=== PATIENT | female | born 1975 | race Caucasian/White ===

== ENCOUNTER → 2024-01-01 | Outpatient (CLI) | payer BC ==
[2024-01-01 08:36] VITALS: BP 104/75; PULSE 94; RESP 16; TEMP 98.2
--- NOTE | 2024-01-01 09:16 | P.HPOB ---
History of Present Illness H&P Date: 01/01/24 Chief Complaint: The patient is here for her routine gynecologic exam. This is a 48-year-old G1, P1 with an LMP of 12/12/23. Patient is here to establish with this office. It has been about 1 year since her last pelvic exam. She previously saw Dr. Campos for her gynecologic care. Per Dr. Campos's records, she had a negative Pap smear on 12/14/2022. She also had negative Pap smears in 2021, 2020, and 2017. The patient states that she recently had a normal mammogram about 3 weeks ago at [facility]. She is without gynecologic complaints. Her menstrual periods are regular every month. Review of Systems According to Dr. Campos's records, she has gained about 9 pounds over the past year. She denies respiratory, cardiac, or G.I. problems. Past Medical History Past Medical History: Thyroid Disorder Additional Past Medical History / Comment(s): Hypothyroid. 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 She has no other history of STDs. History of Any Multi-Drug Resistant Organisms: None Reported Past Surgical History: Adenoidectomy, Orthopedic Surgery, Tubal Ligation Additional Past Surgical History / Comment(s): RHINOPLASTY, LIPOSUCTION, ABDOMINPOPLASTY, ARTHROSCOPIC BOTH KNEES. Nasal reconstruction. The LEEP procedure of the cervix in 2003. Colonoscopy in the past. Past Anesthesia/Blood Transfusion Reactions: No Reported Reaction Smoking Status: Former smoker Past Alcohol Use History: Occasional (3-4 drinks per week.) Additional Past Alcohol Use History / Comment(s): Quit smoking in 2006. Past Drug Use History: None Reported Additional History: She has been since 1999. She works for the [employer]. 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 - Past Family History Mother Additional Family Medical History / Comment(s): Psoriasis. Father Family Medical History: Hypertension Additional Family Medical History / Comment(s): Paternal grandmother had breast cancer and a paternal grandfather had colon cancer. Medications and Allergies Home Medications Medication Instructions Recorded Confirmed Type Levothyroxine Sodium 25 mcg PO DAILY 01/01/24 01/01/24 History Allergies Allergy/AdvReac Type Severity Reaction Status Date / Time No Known Allergies Allergy Unverified 01/01/24 08:32 Exam Vital Signs Temp Pulse Resp BP Pulse Ox 01/01/24 08:33 98.2 F 94 16 104/75 99 Intake and Output 12/31/23 01/01/24 01/01/24 22:59 06:59 14:59 Other: Weight 76.204 kg Height 5 feet 5 inches, weight 168 pounds, BMI 28.0. This is a well-developed well-nourished white female who is alert and oriented times 3 in no acute distress. HEENT: Within normal limits. NECK: Supple without mass or thyromegaly. CHEST AND LUNGS: Clear to auscultation. HEART: Regular rate and rhythm. BREASTS: Are without mass or discharge. AXILLARY EXAM: Negative for adenopathy. BACK: Negative for CVA tenderness. ABDOMEN: Soft, nontender, without palpable masses. PELVIC EXAM: Normal external genitalia. Cervix and vagina appear normal. There is no unusual discharge. There is no evidence of prolapse. The uterus is midposition, nongravid size and nontender. There are no palpable adnexal masses or tenderness. RECTAL EXAM: negative for mass or tenderness and is negative for occult blood. EXTREMITIES: Nontender. IMPRESSION: 1. 48-year-old premenstrual female who is status post tubal ligation, with normal gynecologic exam. PLAN: 1. Pap smear was deferred since she had a negative Pap smear on 12/14/[address] Campos's office. This is confirmed with the records she is brought in. 2. Self breast awareness was discussed with the patient. We have also discusse d symptoms associated with inflammatory breast cancer. 3. Screening mammogram was done about 3 weeks ago and was normal per the patient. This was done at [facility]. We will repeat this in 1 year. 4. Osteoporosis prevention was discussed. I have stressed the importance of adequate calcium, vitamin D and regular exercise. Recommended amounts of calcium and vitamin D were also discussed. 5. She is scheduled to have a colonoscopy on 01/10/2024. 6. She will continue to keep a menstrual calendar and call if problems. 7. She was advised to return in one year for her annual well woman exam.
== END ==
LOC: WWCWWP 08:18
PROVIDERS: ATTEND Obstetrics & Gynecology